=== PATIENT | male | born 1955 | race Caucasian/White ===

== ENCOUNTER 2018-10-27 16:40 | Inpatient (IN) | payer SELFPAY ==
[~2018-10-27] VITALS: Ht 172.7 cm; Wt 111.0 kg
[2018-10-27 17:58] LABS: Basophils # (auto) 0.1 uL; Basophils % (auto) 0.9 % (0.0-2.0); Eosinophils # (auto) 0.3 uL; Eosinophils % (auto) 3.3 % (0.0-7.0); Hematocrit 42.5 % (41.0-53.0); Hemoglobin 14.2 g/dL (13.5-17.5); Lymphocytes # (auto) 2.3 uL; Lymphocytes % (auto) 25.2 % (10.0-50.0); Mean Corpuscular Hemoglobin 30.1 pg (28.0-32.0); Mean Corpuscular Hgb Conc. 33.3 g/dL (32.0-36.0); Mean Corpuscular Volume 90.5 fL (80.0-100.0); Monocytes # (auto) 0.7 uL; Monocytes % (auto) 7.7 % (0.0-12.0); Neutrophils # (auto) 5.7 uL; Neutrophils % (auto) 62.9 % (37.0-80.0); Platelet Count (auto) 317 10^3/uL (140-450); Red Cell Distribution Width 14.4 % (11.8-14.3)
[2018-10-27 18:14] LABS: Alanine Aminotransferase 14 U/L (16-61); Albumin 3.8 g/dL (3.4-5.0); Anion Gap 9 (5-15); Aspartate Aminotransferase 13 U/L (15-37); Blood Urea Nitrogen 16 mg/dL (7-18); Calcium 9.4 mg/dL (8.5-10.1); Carbon Dioxide 24 mmol/L (21-32); Chloride 110 mmol/L (98-107); GFR African American 63 mL/min; GFR Non-African American 52 mL/min; Glucose 91 mg/dL (74-106); Magnesium 2.4 mg/dL (1.6-2.6); Potassium 4.4 mmol/L (3.5-5.1); Sodium 143 mmol/L (136-145)
[2018-10-27 18:19] LABS: Alkaline Phosphatase 87 U/L (45-117); Bilirubin, Total 0.5 mg/dL (0.2-1.0); Total Protein 7.7 g/dL (6.4-8.2)
[2018-10-27] MEDS ORDERED: CLOPIDOGREL BISULFATE 75 MG TAB PO ONE (18:45)
[2018-10-27 21:44] LABS: Urine Bacteria NONE SEEN /hpf (None Seen); Urine Blood Negative /uL (Negative); Urine Hyaline Cast FEW /lpf (0 - 2); Urine Mucus FEW (None Seen); Urine Specific Gravity 1.027 (1.001-1.035); Urine WBC 1 /hpf (0 - 3)
[2018-10-27] MEDS ORDERED: IPRATROPIUM BROM 0.5 MG/2.5ML INH SOL NEB PRN (21:45)
[2018-10-27] MEDS ORDERED: ONDANSETRON HCL 4 MG/2 ML VIAL IV PRN (21:45)
[2018-10-27] MEDS ORDERED: HYDROcodone-ACET 5/325MG TAB PO PRN (21:45)
[2018-10-27] MEDS ORDERED: LORazepam 0.5 MG TAB PO PRN (21:45)
[2018-10-27] MEDS ORDERED: AZITHROMYCIN 500MG/ 250ML 250 ML IV ONE (21:45)
[2018-10-27] MEDS ORDERED: TEMAZEPAM 15 MG CAP PO PRN (21:45)
[2018-10-27] MEDS ORDERED: ALBUTEROL SULF 2.5 MG/0.5ML(0.5%) NEB SOLN NEB PRN (21:45)
[2018-10-27] MEDS ORDERED: ACETAMINOPHEN 325 MG TAB PO PRN (21:45)
[2018-10-27 22:09] VITALS: BP 144/88
--- NOTE | 2018-10-27 22:09 | NUR ---
MS admit from [facility] admitted to telemetry room 0249B. Patient oriented to LEO SWAN, primary RN, unit, room, bed, and unit policies regarding patient care and visiting hours. Room air, pain level 0/10, and ambulates independently without assistive devices. IV 18 g in left hand D/C unable to flush. New IV started in right forearm 22 g. Skin: generalized bruising/scabbing; left arm cut scabbed over OMID. Patient weighed by bedscale and encouraged to call if they need something. All questions and concerns addressed, patient verbalized understanding.
[2018-10-27 23:00] VITALS: BP 105/87
--- NOTE | 2018-10-27 23:00 | NUR ---
Med Rec: Patient states that he lost his medical insurance and has been unable to fill his prescriptions for 3-4 months. He is unable to remember the name of his PCP at this time. Will place a social service consultation to assist with discharge planning and insurance issues. Will set med rec to unable to obtain at this time because patient is unable to remember what medications he previously took.
--- NOTE | 2018-10-27 23:00 | NUR ---
Respiratory note: PT ASSESSED FOR PRN MED NEB TX. HR 69, RR 18, SPO2 98% ON R/A. NO SIGNS OF ANY RESPIRATORY DISTRESS NOTED. ADVISED AK AND RN TO CALL IF TX IS NEEDED. RT NAME & PAGER# WRITTEN ON PT BOARD.
[2018-10-27] MEDS: ATORVASTATIN 20 MG TAB PO SCH (23:42)
[2018-10-28 05:00] VITALS: BP 131/80
--- NOTE | 2018-10-28 06:38 | NUR ---
Page sent to search engine optimization analyst hospitalist: Per HECTOR, patient HR keeps dropping into 40s. Patient is asymptomatic. Other vital signs within normal limit. HR will then slowly increase to 80s/90s. Page sent to search engine optimization analyst hospitalist for cardiology consultation related to inconsistent HR.
[2018-10-28 07:10] LABS: Basophils # (auto) 0.1 uL; Basophils % (auto) 0.8 % (0.0-2.0); Eosinophils # (auto) 0.3 uL; Eosinophils % (auto) 3.4 % (0.0-7.0); Hematocrit 40.2 % (41.0-53.0); Hemoglobin 13.3 g/dL (13.5-17.5); Lymphocytes # (auto) 2.6 uL; Lymphocytes % (auto) 30.2 % (10.0-50.0); Mean Corpuscular Hemoglobin 29.9 pg (28.0-32.0); Mean Corpuscular Hgb Conc. 33.1 g/dL (32.0-36.0); Mean Corpuscular Volume 90.2 fL (80.0-100.0); Monocytes # (auto) 0.7 uL; Monocytes % (auto) 7.9 % (0.0-12.0); Neutrophils % (auto) 57.7 % (37.0-80.0); Nucleated Red Blood Cells % 0.1 %; Platelet Count (auto) 290 10^3/uL (140-450); Red Blood Cells 4.46 10^6/uL (4.5-5.90); White Blood Cell 8.6 10^3/uL (4.4-10.8)
--- NOTE | 2018-10-28 07:20 | NUR ---
Opening Shift Note Assumed care of patient, awake and alert. No S/S of distress/SOB or pain. Instructed on POC and to call for assist PRN, will continue to monitor for changes Q1hr and PRN.
[2018-10-28 07:24] LABS: BUN/Creatinine Ratio 13.7; Calcium 8.5 mg/dL (8.5-10.1); Potassium 3.8 mmol/L (3.5-5.1)
[2018-10-28 08:00] VITALS: BP 115/79
--- NOTE | 2018-10-28 08:31 | NUR ---
PT ASSESSED FOR PRN HHN TX. PT IS ON ROOM AIR, SPO2 99%, HR 72, RR 18. NO S/S OF RESPIRATORY DISTRESS. BREATHING TX NOT INDICATED AT THIS TIME. WILL CONTINUE TO MONITOR.
[2018-10-28 08:43] VITALS: BP 15/79
[2018-10-28] MEDS ORDERED: ENOXAPARIN SOD 30 MG/0.3 ML SYRINGE SC SCH (10:00)
[2018-10-28] MEDS: FAMOTIDINE 20 MG TAB PO SCH ×2 (10:14→22:48)
[2018-10-28] MEDS: CLOPIDOGREL BISULFATE 75 MG TAB PO SCH (10:14)
[2018-10-28] MEDS: NICOTINE 14 MG/24HR TOPICAL PATCH TD SCH (10:15)
--- NOTE | 2018-10-28 10:48 | NUR ---
Ricardo BLANK Carotid US results.
[2018-10-28] MEDS ORDERED: ASPirin 81 mg TAB PO ONE (11:30)
--- NOTE | 2018-10-28 11:32 | NUR ---
Dr. Suárez at bedside MD made aware of HR dropping into 40s.
[2018-10-28 11:49] LABS: Cholesterol 232 mg/dL (< 200)
[2018-10-28 11:51] LABS: HDL Cholesterol 28 mg/dL (40-59); LDL Cholesterol 175 mg/dL (< 100); Triglycerides 165 mg/dL (< 150)
[2018-10-28 13:00] VITALS: BP 119/84
[2018-10-28 16:58] VITALS: BP 123/87
[2018-10-28] MEDS ORDERED: LORazepam 2MG/ML-1ML VIAL IV PRN (19:30)
--- NOTE | 2018-10-28 20:00 | NUR ---
Opening shift Note Pt is resting in bed with eyes open and resp rate is even and unlabored. No s/s of any distress noted. POC discussed with pt and pt verbalizes understanding. Bed is low, wheels are locked, and call light is with in reach. Bed alarm is set for pt safety.
[2018-10-28 22:00] VITALS: BP 155/88
[2018-10-28] MEDS: AZITHROMYCIN 500MG/ 250ML 250 ML IV SCH (22:47)
[2018-10-28] MEDS: ATORVASTATIN 20 MG TAB PO SCH (22:48)
--- NOTE | 2018-10-28 23:03 | NUR ---
Pt OOb to BR and then back to bed. Pt placed back on CPAP. Pt given urinal for voiding and instructed to call prn for assist.
[2018-10-29] VITALS (7 sets, daily range): BP systolic 114–155; BP diastolic 70–98
--- NOTE | 2018-10-29 05:22 | NUR ---
NEXAGE reports that pt with HR down in the 30's. Upon assessing pt , he is found sleeping on his stomach with his face into the bed and CPAP mask is off. Woke pt up and he denies any SOB or CP and CPAP mask reapplied at this time. Pt HR back up to 60's.
[2018-10-29] MEDS ORDERED: LEVOTHYROXINE SODIUM 112 MCG TAB PO ONE (09:15)
--- NOTE | 2018-10-29 09:20 | NUR ---
Echo Called scheme technician for patient's echo per MD request. Per scheme technician, order has been changed to ERIN.
[2018-10-29] MEDS: CLOPIDOGREL BISULFATE 75 MG TAB PO SCH (09:56)
[2018-10-29] MEDS: FAMOTIDINE 20 MG TAB PO SCH ×2 (09:56→21:53)
[2018-10-29] MEDS: ENOXAPARIN SOD 40 MG/0.4 ML SYRINGE SC SCH (09:57)
[2018-10-29] MEDS: ASPirin 81 mg TAB PO SCH (09:57)
[2018-10-29] MEDS: NICOTINE 14 MG/24HR TOPICAL PATCH TD SCH (09:59)
[2018-10-29] MEDS: SODIUM CHLORIDE 0.9% 1,000 ML IV SCH ×2 (15:48→22:06)
[2018-10-29] MEDS ORDERED: IOHEXOL 350 MG/ML 100ML IJ ONE ×2 (16:56→17:25)
--- NOTE | 2018-10-29 19:15 | NUR ---
OPEN SHIFT NOTE PATIENT IS ALERT AND ORIENTED X4 ON ROOM AIR. LEFT HAND 20 GAUGE IS INTACT AND PATENT. NO COMPLAINTS OF PAIN AT THIS TIME. BED IS LOCKED IN LOWEST POSITION WITH SIDE RAILS UP X2 FOR SAFETY. CALL LIGHT IS WITHIN REACH AND PATIENT ENCOURAGED TO CALL IF NEEDS ANYTHING. POC DISCUSSED AND QUESTIONS ANSWERED. WILL CONTINUE TO ROUND Q1HR AND PRN.
[2018-10-29] MEDS: AZITHROMYCIN 500MG/ 250ML 250 ML IV SCH (21:54)
[2018-10-29] MEDS: ATORVASTATIN 20 MG TAB PO SCH (22:01)
--- NOTE | 2018-10-30 00:40 | NUR ---
Respiratory note: PT SEEN FOR ROUTINE CPAP CHECK, BUT WHEN I ENTERED THE PT'S ROOM I FOUND HIM SLEEPING WITH THE CPAP MASK OFF. I WOKE THE PT UP AND ASKED IF HE WOULD LIKE TO GO BACK ON BUT HE STATED NO. I THEN ASKED IF HE LIKES TO WEAR IT AND HE STATED NOT REALLY AND TURNED AROUND TO GO BACK ASLEEP. CPAP TAKEN OUT OF PTS ROOM AT THIS TIME.
[2018-10-30 05:00] VITALS: BP 116/65
[2018-10-30] MEDS: LEVOTHYROXINE SODIUM 112 MCG TAB PO SCH (06:44)
--- NOTE | 2018-10-30 07:30 | NUR ---
Opening shift Note Received report and continuation of care,Pt is resting in bed,awake,alert and oriented. resp rate is even and unlabored. No s/s of any distress noted. POC discussed with pt and pt verbalizes understanding. Bed is low, wheels are locked, and call light is with in reach. Bed alarm is set for pt safety.
--- NOTE | 2018-10-30 07:56 | NUR ---
HECTOR NAME PLATE STAMPER CALLED,PATIENT HAD 12 BEATS OF VTACH ( TELE STRIP REVIEWED)
--- NOTE | 2018-10-30 08:00 | NUR ---
PATIENT CHECKED,PATIENT DANGLING AT BEDSIDE EATING BREAKFAST,ASYMPTOMATIC DENIES ANY PALPITATION OR CHEST DISCOMFORT,VITAL SIGNS TAKEN BP 129/77,HR82,RR18 ON ROOM AIR SATURATING 95%.
--- NOTE | 2018-10-30 08:35 | NUR ---
DR. AGOSTO PAGED AND INFORMED OF ABOVE ARRHYTHMIA.
--- NOTE | 2018-10-30 09:00 | NUR ---
SAIGE REGISTRAR ASSISTANT HERE AT BEDSIDE,ATIVAN 1 MG IV GIVEN PREP FOR MRI OF BRAIN,DR. Balaji ABRAMS HERE,INFORMED OF EPISODE OF VTACH ( ASYMPTOMATIC AND VITAL SIGNS STABLE)
[2018-10-30 09:31] VITALS: BP 129/85
[2018-10-30] MEDS: ENOXAPARIN SOD 40 MG/0.4 ML SYRINGE SC SCH (10:56)
[2018-10-30] MEDS: CLOPIDOGREL BISULFATE 75 MG TAB PO SCH (10:56)
[2018-10-30] MEDS: ASPirin 81 mg TAB PO SCH (10:56)
[2018-10-30] MEDS: FAMOTIDINE 20 MG TAB PO SCH ×2 (10:56→21:58)
[2018-10-30] MEDS: NICOTINE 14 MG/24HR TOPICAL PATCH TD SCH (10:57)
[2018-10-30] MEDS: SODIUM CHLORIDE 0.9% 1,000 ML IV SCH ×2 (11:25→21:57)
[2018-10-30 12:34] VITALS: BP 113/86
--- NOTE | 2018-10-30 13:35 | NUR ---
DR. WANG CALLED BACK INFORMED OF MRI RESULT AVAILABILITY STATED WAS INFORMED BY FIELD SERVICE POULTRY TECHNICIAN AND AWARE.
--- NOTE | 2018-10-30 15:30 | NUR ---
PT REPORTS THAT HE IS WALKING FINE AND DOES NOT NEED P.T.
[2018-10-30 17:06] VITALS: BP 144/78
[2018-10-30] MEDS: AZITHROMYCIN 500MG/ 250ML 250 ML IV SCH (21:58)
[2018-10-30] MEDS: ATORVASTATIN 20 MG TAB PO SCH (21:58)
[2018-10-30 22:00] VITALS: BP 156/98
[2018-10-31 05:44] VITALS: BP 120/70
[2018-10-31] MEDS: LEVOTHYROXINE SODIUM 112 MCG TAB PO SCH (06:38)
[2018-10-31 07:14] LABS: INR 0.99 (0.9-1.15); Partial Thromboplastin Time 27.1 sec (23.64-32.05)
[2018-10-31] MEDS: SODIUM CHLORIDE 0.9% 1,000 ML IV SCH ×3 (07:15→20:26)
--- NOTE | 2018-10-31 07:15 | NUR ---
Opening shift Note Received report and continuation of care,Pt is resting in bed,awake,alert and oriented. respiration even and unlabored. No s/s of any distress noted. instructed not to eat or drink,POC discussed with pt,scheduled for Carotid Angiogram and Lower Ext. Angiogram with , pt verbalizes understanding. Bed is low, wheels are locked, and call light is with in reach. Bed alarm is set for pt safety.
[2018-10-31 09:00] VITALS: BP 133/80
[2018-10-31] MEDS: FAMOTIDINE 20 MG TAB PO SCH ×2 (10:00→21:52)
[2018-10-31] MEDS: ENOXAPARIN SOD 40 MG/0.4 ML SYRINGE SC SCH (10:00)
[2018-10-31] MEDS: ASPirin 81 mg TAB PO SCH (10:00)
[2018-10-31] MEDS: CLOPIDOGREL BISULFATE 75 MG TAB PO SCH (10:00)
--- NOTE | 2018-10-31 12:10 | NUR ---
PATIENT TRANSPORTED TO TRANSPORTATION AGENT VIA BED FOR CAROTID ANGIOGRAM
[2018-10-31 13:15] VITALS: BP 111/78
[2018-10-31] MEDS ORDERED: SODIUM CHL 0.9% 50 ML ONE (13:35)
[2018-10-31] MEDS ORDERED: ANGIOMAX 250 MG VIAL IV ONE (13:35)
[2018-10-31] MEDS ORDERED: PHENYLEPHRINE HCL 10 MG/ML VL ONE (13:49)
[2018-10-31] MEDS ORDERED: GLYCOPYRROLATE 0.2 MG/ML 1ML VIAL ONE (13:49)
[2018-10-31] MEDS ORDERED: LIDOCAINE 2%HCL (LOCAL ANESTH.) INJ 20ML MDV ONE ×2 (13:51→14:24)
[2018-10-31] MEDS ORDERED: ATROPINE SULFATE 1 MG/1 ML VIAL ONE (13:57)
[2018-10-31] MEDS ORDERED: DOPamine 1600MCG/ML D5W 0 ML IV ONE (14:01)
[2018-10-31] MEDS ORDERED: CLOPIDOGREL 300 MG TAB ONE (14:47)
--- NOTE | 2018-10-31 15:51 | NUR ---
assessment Patient is a 62 year old male who is alert and oriented. Prior to admission patient lived home alone and functioned independently. Patients PCP is Dr Mccullough. Patient has no insurance. Patient has been assessed by Oleg Choe of [facility]. Patient may qualify for Medi-jae if she brings back all her paperwork. I have provided patient with resources for [facility], Dr. De Leon, and [facility] urgent care for follow up visits. I have provided patient with a prescription card from community assistance program. Patient verbalized understanding and agreed to discharge plan home. Addendum: 10/31/18 at 1602 by Destinee LEARY Amended: Links added.
--- NOTE | 2018-10-31 16:00 | NUR ---
RECEIVED FROM EXPLOSIVE SPECIALIST INSTRUCTED TO STAY IN BED,KEEP RIGHT LEG STRAIGHT AND REMAIN BED REST UNTIL 5 PM,RIGHT GROIN BENIGN,NO HEMATOMA ,NO ECCHYMOSIS NO BLEEDING.VITAL SIGNS TAKEN BP 136/79,HR84,TEMP.98.4,RR20 ,O2 AT 2 LITERS NASAL CANNULA SATURATING 93%.PATIENT VERBALIZED UNDERSTANDING WITH INSTRUCTIONS.
--- NOTE | 2018-10-31 17:00 | NUR ---
OOB TOLERATING ACTIVITY RIGHT GROIN BENIGN NO BLEEDING NO HEMATOMA NOTED.
--- NOTE | 2018-10-31 18:15 | NUR ---
PATIENT APPEARS DISORIENTED STILL REFUSING IV FLUIDS AND TELEMETRY EXPLAIN IMPORTANCE AND RE ORIENTED TO PLACE AND TIME.PATOENT STATED HE KNOWS WHERE HE IS AT AND DOES NOT WANT TO WEAR TELEMETRY.
[2018-10-31 18:22] VITALS: BP 136/79
[2018-10-31] MEDS: NICOTINE 14 MG/24HR TOPICAL PATCH TD SCH (18:33)
[2018-10-31] MEDS: ATORVASTATIN 20 MG TAB PO SCH (21:51)
[2018-10-31] MEDS: AZITHROMYCIN 500MG/ 250ML 250 ML IV SCH (21:51)
[2018-10-31 22:00] VITALS: BP 127/72
[2018-11-01 05:00] VITALS: BP 116/79
[2018-11-01] MEDS: LEVOTHYROXINE SODIUM 112 MCG TAB PO SCH (06:29)
[2018-11-01 09:00] VITALS: BP 117/68
--- NOTE | 2018-11-01 09:30 | NUR ---
Called Radiology and left a message on instrument technician helper regarding stat ERIN. But there is no answer.
[2018-11-01] MEDS: ASPirin 81 mg TAB PO SCH (10:19)
[2018-11-01] MEDS: ENOXAPARIN SOD 40 MG/0.4 ML SYRINGE SC SCH (10:19)
[2018-11-01] MEDS: FAMOTIDINE 20 MG TAB PO SCH (10:19)
[2018-11-01] MEDS: CLOPIDOGREL BISULFATE 75 MG TAB PO SCH (10:19)
[2018-11-01] MEDS: NICOTINE 14 MG/24HR TOPICAL PATCH TD SCH (10:20)
[2018-11-01] MEDS: SODIUM CHLORIDE 0.9% 1,000 ML IV SCH (10:20)
--- NOTE | 2018-11-01 11:30 | NUR ---
Went down to ECHO room and spoke with Lynda, one of the ECHO staff and informed staff of the stat ERIN order for the patient. Per staff, put the patient on NPO and they will call RN when they are ready for the ERIN.
[2018-11-01 13:00] VITALS: BP 126/85
--- NOTE | 2018-11-01 13:00 | NUR ---
Spoke with Naurex, he said he already contacted Dr. Moran regarding the stat ERIN but per Dr. Moran, he is not here today and would not be able to do the test today. Will contact Dr. Moran when he would be able to do the test.
--- NOTE | 2018-11-01 13:33 | NUR ---
Contacted Dr. Moran, asked when he would be able to the ERIN, await call back from Dr. Moran.
--- NOTE | 2018-11-01 13:45 | NUR ---
Dr. Moran called back, stated that he is not going to do ERIN for patient as patient does not need it because he already put a stent on the patient yesterday. From Dr. Moran's perspective, patient is cleared for discharge.
--- NOTE | 2018-11-01 13:52 | NUR ---
Spoke with Dr. Diaz, per Dr. Diaz, patient has stroke in more than one arterial territory and because of the patient's multiple strokes and patient having no insurance, in-patient ERIN is highly recommended for the patient.
--- NOTE | 2018-11-01 13:57 | NUR ---
Spoke with Dr. Suárez, informed MD that I spoke with Dr. Diaz and that Dr. Diaz is recommending ERIN due to patient having stroke in more than one arterial territory. Dr. Suárez informed that Dr. Diaz said in-patient ERIN is recommended for the patient. But per Dr. Moran, he is not going to do ERIN for the patient as Dr. Moran already put a stent already on the carotid artery yesterday. Per Dr. Moran, patient is cleared for discharge. But per Dr. Diaz, in-patient ERIN is recommended. Per Dr. Suárez, cancel the order for ERIN and patient may be discharged home. ERIN can be done out-patient. Patient needs to follow up with Dr. Moran.
--- NOTE | 2018-11-01 15:30 | NUR ---
Discharge Discharge instructions given as ordered. Encourage to set up a primary MD, public health information given as well as information on how to secure [facility], to set up follow up appointment with Primary MD, Dr. Moran-Wax Cutter and Dr. Diaz-Neurologist as instructed. All questions and concerns addressed. Patient verbalized understanding. Patient refused the pneumonia vaccine. IV removed with catheter intact, pressure dressing applied. Telemetry unit returned to HECTOR. Patient taken by face painter via wheelchair, taxi voucher given with all personal belongings. No distress noted at time of departure.
== END 2018-11-01 15:30 | disposition home or self-care (01) | DRG 34 ==
LOC: EDBD 16:40 → ER 16:51 → TELE 16:52 → TELE-EAST 22:08
PROVIDERS: ADMIT Nurse Practitioner Family; ATTEND Family Medicine
PROC: 037K3DZ Dilation of Right Internal Carotid Artery with Intraluminal Device, Percutaneous Approach (ICD-10-PCS; principal; 2018-10-31)
PROC: B31Q1ZZ Fluoroscopy of Cervico-Cerebral Arch using Low Osmolar Contrast (ICD-10-PCS; 2018-10-31)
PROC: B3181ZZ Fluoroscopy of Bilateral Internal Carotid Arteries using Low Osmolar Contrast (ICD-10-PCS; 2018-10-31)
DX: I65.23 Occlusion and stenosis of bilateral carotid arteries (principal); I63.9 Cerebral infarction, unspecified; J18.9 Pneumonia, unspecified organism; E03.9 Hypothyroidism, unspecified; E66.9 Obesity, unspecified; Z68.37 Body mass index [BMI] 37.0-37.9, adult; E78.00 Pure hypercholesterolemia, unspecified; E78.5 Hyperlipidemia, unspecified; F17.210 Nicotine dependence, cigarettes, uncomplicated; H53.462 Homonymous bilateral field defects, left side; I10 Essential (primary) hypertension; I77.1 Stricture of artery; M48.00 Spinal stenosis, site unspecified; Z79.02 Long term (current) use of antithrombotics/antiplatelets; Z79.82 Long term (current) use of aspirin; Z79.890 Hormone replacement therapy; Z79.899 Other long term (current) drug therapy; I66.21 Occlusion and stenosis of right posterior cerebral artery; I66.01 Occlusion and stenosis of right middle cerebral artery
CPT/HCPCS: 36415; 70450; 70496; 70498; 70551; 71046; 72125; 80048; 80053; 80061; 81001; 83735; 83880; 84443; 84484; 85025; 85610; 85730; 93005; 93886; 94660; G0378; J0461